=== PATIENT | male | born 1960 | race Caucasian/White ===

== ENCOUNTER 2020-02-04 02:32 | Emergency (ER) | payer OTHER ==
[~2020-02-04 02:32] MED LIST: AMARYL1 MG; CLONAZEPAM 1 MG1 M1; CYMBALTA30 MG PO; GLUCOPHAGE1000 MG; IBUPROFEN 800800 M1; OXYCONTIN PO
== END 2020-02-04 03:40 ==
LOC: M.ERS 02:32
DX: Z02.89 Encounter for other administrative examinations (principal)